=== PATIENT | female | born 1955 | race Caucasian/White ===

== ENCOUNTER 2021-08-28 18:14 | Emergency (ER) | payer SELFPAY ==
[2021-08-28 18:36] VITALS: BP 147/81; PULSE 53
[2021-08-28] MEDS ORDERED: Sodium Chloride 0.9% 1,000 ML IV ONE (19:13)
[2021-08-28] MEDS ORDERED: Ketorolac 30 MG/ML SDV IVPUSH STA (19:14)
[2021-08-28] MEDS ORDERED: Ondansetron 4 MG/2 ML SDV IVPUSH ONE ×2 (19:14→21:20)
--- NOTE | 2021-08-28 20:05 | EDM.PDOC ---
ED HPI GENERAL MEDICAL PROBLEM - General Chief Complaint: Headache Stated Complaint: VOMITING FEVER HEADACHE Time Seen by Provider: 08/28/21 18:48 Source of Information: Reports: Patient History Limitations: Reports: No Limitations - History of Present Illness INITIAL COMMENTS - FREE TEXT/NARRATIVE: Mrs. Jones is a very pleasant 65-year-old woman who now presents to the ED st ating that she started sneezing on 08/24/2021. She developed a wet- sounding cough and a sore throat on 08/25/2021. She developed a subjective fever with chills, along with a headache, on 08/26/2021, followed by a loss of taste and smell, with nausea and vomiting on , 08/27/2021. She denies associated dyspnea. No recent urinary symptoms. She states that she took some ibuprofen on , but subsequently vomited it up. She reports that because of her illness, she has not been able to take any of her usually prescribed medications since Tuesday. The patient states that her is not similarly ill. Here in the ED, the patient's initial BP was found to be mildly elevated at 147/81, with bradycardia 53 bpm. She is afebrile, saturating 97% on room air. She complains of being uncomfortable, but does not appear to be in acute distress. The patient denies having a recent ear pain, nasal or sinus congestion, dyspnea, chest pain, palpitations, constipation, diarrhea, abdominal pain, urinary symptoms, recent weight gain or weight loss, recent bloody bowel movements or black bowel movements, recent joint aches, or rashes. The patient's PCP is Dr. Agapito Whitten. Her Orthopedic Surgeon is Dr. Jerrod Kingston. She has not received a COVID vaccination. Headache Pain Score (Numeric/FACES): 8 - Related Data Allergies Allergy/AdvReac Type Severity Reaction Status Date / Time No Known Allergies Allergy Verified 08/28/21 18:36 Home Meds: Home Meds hydroCHLOROthiazide [Hydrochlorothiazide] 12.5 mg PO DAILY 12/02/14 [History] lisinopriL [Prinivil] 10 mg PO DAILY 12/02/14 [History] Cholecalciferol (Vitamin D3) [Vitamin D3] 1 tab PO DAILY 08/28/21 [History] Famotidine [Pepcid AC] 20 mg PO DAILY 08/28/21 [History] Mv,Calcium,Min/Iron/Folic/Vitk [Multi For Her Tablet] 1 tab PO DAILY 08/28/21 [History] Sucralfate 1 tab PO BID 08/28/21 [History] Zinc 1 tab PO DAILY 08/28/21 [History] Past Medical History HEENT History: Reports: Impaired Vision Cardiovascular History: Reports: Hypertension Musculoskeletal History: Reports: Osteoarthritis Endocrine/Metabolic History: Reports: Obesity/BMI 30+ - Past Surgical History HEENT Surgical History: Reports: Naso-Sinus Surgery (Rhinoplasty), Oral Surgery (dental extractions), Tonsillectomy Musculoskeletal Surgical History: Reports: Knee Replacement (bilateral) Social & Family History - Tobacco Use Tobacco Use Status *Q: Never Tobacco User Second Hand Smoke Exposure: No - Alcohol Use Alcohol Use History: No - Recreational Drug Use Recreational Drug Use: No - Living Situation & Occupation Living situation: Reports: , with Spouse Occupation: Employed ([employer]) ED ROS GENERAL - Review of Systems Review Of Systems: Comprehensive ROS is negative, except as noted in HPI. ED EXAM, GENERAL - Physical Exam Exam: See Below Exam Limited By: No Limitations General Appearance: Alert, WD/WN, Mild Distress (appears uncomfortable) Eye Exam: Bilateral Eye: EOMI, Normal Inspection Ears: Normal External Exam, Hearing Grossly Normal Nose: Normal Inspection Throat/Mouth: Normal Inspection, Normal Lips, Normal Voice, No Airway Compromise Head: Atraumatic, Normocephalic Neck: Normal Inspection, Full Range of Motion Respiratory/Chest: No Respiratory Distress, Lungs Clear, Normal Breath Sounds, No Accessory Muscle Use Cardiovascular: Normal Peripheral Pulses, Regular Rate, Rhythm, No Gallop, No JVD, No Murmur, No Rub Peripheral Pulses: 3+: Radial (L), Radial (R) GI/Abdominal: Normal Bowel Sounds, Soft, Non-Tender, No Organomegaly, No Distention, No Abnormal Bruit, No Mass Back Exam: Normal Inspection, Full Range of Motion, NT Extremities: Normal Inspection, Normal Range of Motion, Normal Capillary Refill Neurological: Alert, Oriented, Normal Cognition, No Motor/Sensory Deficits Psychiatric: Normal Affect Skin Exam: Warm, Dry, Intact, Normal Color, No Rash #1 Interpretation EKG Date: 08/28/21 Time: 19:22 Rhythm: Other (Sinus bradycardia) Rate (Beats/Min): 54 Sheridan: Normal P-Wave: Present (Short GA interval) QRS: Other (Poor R-wave progression) ST-T: Normal QT: Normal Comparison: NA - No Prior EKG Course - Vital Signs Last Recorded V/S: Last Vital Signs Temp 36.1 C 08/28/21 18:27 Pulse 53 L 08/28/21 18:27 Resp 16 08/28/21 18:27 BP 147/81 H 08/28/21 18:27 Pulse Ox 97 08/28/21 18:27 - Orders/Labs/Meds Orders: Active Orders 24 hr Category Date Time Status Chest 1V Frontal [CR] Stat Exams 08/28/21 19:10 Taken BLOOD CULTURE [MREF] Stat Lab 08/28/21 19:58 Received BLOOD CULTURE [MREF] Stat Lab 08/28/21 20:02 Received Blood Culture x2 Reflex Set [OM.PC] Stat Oth 08/28/21 19:13 Ordered Isolation [COMM] Routine Oth 08/28/21 19:13 Ordered Labs: Laboratory Tests 08/28/21 08/28/21 08/28/21 Range/Units 18:51 19:05 19:05 WBC 3.47 L (3.98-10.04) K/mm3 RBC 4.53 (3.98-5.22) M/mm3 Hgb 13.5 (11.2-15.7) gm/dl Hct 40.6 (34.1-44.9) % MCV 89.6 (79.4-94.8) fl MCH 29.8 (25.6-32.2) pg MCHC 33.3 (32.2-35.5) g/dl RDW Std Deviation 43.0 (36.4-46.3) fL Plt Count 217 D (182-369) K/mm3 MPV 9.4 (9.4-12.3) fl Neutrophils % (Manual) 55 (40-60) % Band Neutrophils % 1 (0-10) % Lymphocytes % (Manual) 31 (20-40) % Atypical Lymphs % 0 % Monocytes % (Manual) 13 H (2-10) % Eosinophils % (Manual) 0 L (0.7-5.8) % Basophils % (Manual) 0 L (0.1-1.2) Platelet Estimate Adequate RBC Morph Comment Normal D-Dimer, Quantitative (0.19-0.50) mg/L Sodium 137 (136-145) mEq/L Potassium 3.6 (3.5-5.1) mEq/L Chloride 101 (98-107) mEq/L Carbon Dioxide 23 (21-32) mEq/L Anion Gap 16.6 H (5-15) BUN 16 (7-18) mg/dL Creatinine 0.7 (0.55-1.02) mg/dL Est Cr Clr Drug Dosing TNP Estimated GFR (MDRD) > 60 (>60) mL/min BUN/Creatinine Ratio 22.9 H (14-18) Glucose 115 H (70-99) mg/dL Lactic Acid (0.4-2.0) mmol/L Calcium 8.8 (8.5-10.1) mg/dL Magnesium 1.7 L (1.8-2.4) mg/dL Total Bilirubin 0.8 (0.2-1.0) mg/dL AST 35 (15-37) U/L ALT 34 (14-59) U/L Alkaline Phosphatase 69 (46-116) U/L Troponin I < 0.017 (0.00-0.056) ng/mL C-Reactive Protein <0.2 (<1.0) mg/dL Total Protein 7.4 (6.4-8.2) g/dl Albumin 3.7 (3.4-5.0) g/dl Globulin 3.7 gm/dL Albumin/Globulin Ratio 1.0 (1-2) SARS-CoV-2 RNA (LUIS) Positive H (NEGATIVE) 08/28/21 08/28/21 Range/Units 19:05 19:05 WBC (3.98-10.04) K/mm3 RBC (3.98-5.22) M/mm3 Hgb (11.2-15.7) gm/dl Hct (34.1-44.9) % MCV (79.4-94.8) fl MCH (25.6-32.2) pg MCHC (32.2-35.5) g/dl RDW Std Deviation (36.4-46.3) fL Plt Count (182-369) K/mm3 MPV (9.4-12.3) fl Neutrophils % (Manual) (40-60) % Band Neutrophils % (0-10) % Lymphocytes % (Manual) (20-40) % Atypical Lymphs % % Monocytes % (Manual) (2-10) % Eosinophils % (Manual) (0.7-5.8) % Basophils % (Manual) (0.1-1.2) Platelet Estimate RBC Morph Comment D-Dimer, Quantitative 0.42 (0.19-0.50) mg/L Sodium (136-145) mEq/L Potassium (3.5-5.1) mEq/L Chloride (98-107) mEq/L Carbon Dioxide (21-32) mEq/L Anion Gap (5-15) BUN (7-18) mg/dL Creatinine (0.55-1.02) mg/dL Est Cr Clr Drug Dosing Estimated GFR (MDRD) (>60) mL/min BUN/Creatinine Ratio (14-18) Glucose (70-99) mg/dL Lactic Acid 1.5 (0.4-2.0) mmol/L Calcium (8.5-10.1) mg/dL Magnesium (1.8-2.4) mg/dL Total Bilirubin (0.2-1.0) mg/dL AST (15-37) U/L ALT (14-59) U/L Alkaline Phosphatase (46-116) U/L Troponin I (0.00-0.056) ng/mL C-Reactive Protein (<1.0) mg/dL Total Protein (6.4-8.2) g/dl Albumin (3.4-5.0) g/dl Globulin gm/dL Albumin/Globulin Ratio (1-2) SARS-CoV-2 RNA (LUIS) (NEGATIVE) Meds: Medications Discontinued Medications Generic Name Dose Route Start Last Admin Trade Name Freq PRN Reason Stop Dose Admin Acetaminophen 650 mg 08/28/21 21:20 08/28/21 21:29 Acetaminophen 325 Mg Tab PO 08/28/21 21:21 650 mg NOW ONE Administration Diphenhydramine HCl 50 mg 08/28/21 21:55 Diphenhydramine 50 Mg/Ml Sdv IVPUSH ONETIME PRN hypersensitivity reaction Epinephrine HCl 0.3 mg 08/28/21 21:55 Epinephrine 1 Mg/Ml Sdv IM ONETIME PRN hypersensitivity reaction Famotidine 20 mg 08/28/21 21:55 Famotidine 20 Mg/2 Ml Sdv IVPUSH ONETIME PRN hypersensitivity reaction Sodium Chloride 1,000 mls @ 999 mls/hr 08/28/21 19:13 08/28/21 19:23 Normal Saline IV 08/28/21 20:13 999 mls/hr ONETIME ONE Administration CASIRIVIMAB/IMDEVIMAB 10 ml/ 110 mls @ 220 mls/hr 08/28/21 21:55 08/28/21 22:50 Sodium Chloride IV 08/28/21 22:24 220 mls/hr ONETIME ONE Administration Ketorolac Tromethamine 30 mg 08/28/21 19:14 08/28/21 19:23 Ketorolac 30 Mg/Ml Sdv IVPUSH 08/28/21 19:15 30 mg ONETIME STA Administration Methylprednisolone Sodium Succinate 125 mg 08/28/21 21:55 Methylprednisolone Sodium Succinate 125 Mg/2 Ml Sdv IVPUSH ONETIME PRN hypersensitivity reaction Ondansetron HCl 4 mg 08/28/21 19:14 08/28/21 19:23 Ondansetron 4 Mg/2 Ml Sdv IVPUSH 08/28/21 19:15 4 mg ONETIME ONE Administration Ondansetron HCl 4 mg 08/28/21 21:20 08/28/21 21:31 Ondansetron 4 Mg/2 Ml Sdv IVPUSH 08/28/21 21:21 4 mg ONETIME ONE Administration Sodium Chloride 30 ml 08/28/21 22:00 Sodium Chloride 0.9% 10 Ml Syringe FLUSH ASDIRECTED YVETTE - Re-Assessments/Exams Free Text/Narrative Re-Assessment/Exam: 08/28/21 20:01 A swab for the SARS-CoV-2 virus was obtained at triage. I have ordered a work- up that includes numerous blood tests, 2 sets of blood cultures, the addition of an influenza A + B viruses, a portable chest x-ray, and an ECG. In the meantime, the patient will be treated with some IV Toradol for her headache, IV Zofran for her nausea, and IV fluid. 08/28/21 21:12 The patient's CBC is remarkable for leukopenia of 3.47, with the remainder of her CBC being unremarkable. Her CMP is remarkable for slight hyperglycemia of 115, with remainder of her CMP being unremarkable. Her magnesium level is slightly depressed at 1.7. Her lactic acid level is within normal limits at 1.5. Her CRP is undetectably low. Her troponin is undetectably low. Her D-dimer is within normal limits at 0.42. Her swab for the SARS-CoV-2 virus is positive. Her swab for influenza A + B viruses is still pending and her portable chest radiograph has not yet been obtained. 08/28/21 21:22 Portable chest radiograph appears to be grossly normal. A metallic necklace is seen. The cardiac silhouette is at the upper limits of normal. No pulmonary vascular congestion. No pleural effusions seen on this AP view. No focal infiltrate. No pneumothorax. Formal read per the Radiologist pending. 08/28/21 21:23 Test results discussed with the patient. As above, the patient has COVID-19, but is not hypoxemic. Based on her BMI and history of hypertension, she is a candidate for an infusion of the monoclonal antibody Regen-Cov. We discussed that at length, including that it is an emergency use authorization medication, intended to decrease the likelihood of patients diagnosed with COVID-19 from developing severe symptoms or , and that it does not treat her current symptoms. I explained that Regen-Cov is still under investigation, that it is not fully FDA approved, and that the potential benefits and risks of the medication are not fully known. The patient was notified that if she receives Regen-Cov, that it may decrease her immune response to a COVID vaccination, should she decide to get it after she recovers from her current illness. I explained that there is a possibility that she could have an allergic reaction either during or after the infusion, as well as brief pain, bleeding, bruising of the skin, soreness, swelling, and possible infection at the infusion site. Other side effects could occur. I discussed that there are other potential treatment options that are currently not FDA approved to treat COVID-19. The patient was notified that the infusion takes about half an hour, after which she would be expected to remain in the ED for another hour to observe for possible side effects. She was offered the "Patient and caregiver LINO Regen-Cov fact sheet" to read and review. All questions were answered. The patient expressed understanding, but would like to discuss the issue with her son on the phone before making a decision. 08/28/21 21:56 Notified by Alvaro LAWSON that the patient elected to proceed with the infusion of Regen-Cov. 08/28/21 23:57 It has been an hour since the patient's infusion of Regen-Cov has finished. I will discharge her home with an [facility] prescription for Zofran ODT. Diet as tolerated. She may take OTC ibuprofen as needed for discomfort, but I recommended that she not take any vviu-tze-jvxceaw cough or cold remedies, as they have been shown to be of no benefit, but will likely upset her stomach. We do not have any pulse oximeter is to give her, therefore I recommended that she have one of her adult kids go by the [facility] to see if they can give her one. She should check her oxygen saturation several times a day, and we would like her to return to the ED if her SpO2 drops down to 90% or lower, persistently. Departure - Departure Time of Disposition: 23:59 Disposition: Home, Self-Care 01 Condition: Good Clinical Impression: COVID-19 - Discharge Information *PRESCRIPTION DRUG MONITORING PROGRAM REVIEWED*: Not Applicable *COPY OF PRESCRIPTION DRUG MONITORING REPORT IN PATIENT MAKENZIE: Not Applicable Instructions: COVID-19 Frequently Asked Questions, 10 Things You Can Do to Manage Your COVID-19 Symptoms at Home - [facility] (06/12/2021), COVID-19: What to Do If You Are Sick- [facility] (02/11/2021) Referrals: Agapito Whitten MD [Physician] - Jerrod Kingston [Ordering Only Provider] - Forms: ED Department Discharge Additional Instructions: You were seen in the emergency room after developing sneezing, a cough, a sore throat, a possible fever with chills, loss of taste and smell, nausea, vomiting, and a headache. Work-up in the ER included numerous blood tests, 2 sets of blood cultures, a swab for the SARS-CoV-2 virus, a chest x-ray, and an ECG. Your swab for the SARS-CoV-2 virus returned positive, meaning that you have COVID-19. The remainder of your work-up was unremarkable. You were treated with an infusion of the monoclonal antibodies Regen-Cov (Regeneron). As discussed, Regen-Cov is not supposed to help with your current symptoms, but decreases your chance of developing severe symptoms or from COVID-19. A prescription for the antinausea medicine Zofran ODT has been provided to you via [employer]. You may dissolve 1 tablet of Zofran ODT on your tongue up to every 8 hours, as needed for nausea/vomiting. Stay adequately hydrated. Pedialyte, Gatorade, or Powerade are best. Eat a bland diet, such as rice, oatmeal, or bananas. Chicken noodle soup with saltine crackers is an excellent choice. You may take fhdx-bno-yncasgy ibuprofen as needed for discomfort. We recommend that you not take any iwes-qws-lzxegvu cough or cold remedies, as they have been shown to be of no benefit, and may upset your stomach. As discussed, it is imperative that both you and your strictly isolate until you test negative. On average, that takes 10 days. We recommend that you acquire a pulse oximeter and check your oxygen saturation several times a day. A free pulse oximeter may be available from the [facility]. If your oxygen saturation drops down to 90% or lower, persistently, please return to the ER for reevaluation. Sepsis Event Note (ED) - Focused Exam Vital Signs: Vital Signs Temp Pulse Resp BP Pulse Ox 08/28/21 18:27 36.1 C 53 L 16 147/81 H 97 - My Orders Last 24 Hours: My Active Orders 08/28/21 19:10 Chest 1V Frontal [CR] Stat 08/28/21 19:13 Blood Culture x2 Reflex Set [OM.PC] Stat Isolation [COMM] Routine 08/28/21 19:58 BLOOD CULTURE [MREF] Stat 08/28/21 20:02 BLOOD CULTURE [MREF] Stat - Assessment/Plan Last 24 Hours: My Active Orders 08/28/21 19:10 Chest 1V Frontal [CR] Stat 08/28/21 19:13 Blood Culture x2 Reflex Set [OM.PC] Stat Isolation [COMM] Routine 08/28/21 19:58 BLOOD CULTURE [MREF] Stat 08/28/21 20:02 BLOOD CULTURE [MREF] Stat
[2021-08-28] MEDS ORDERED: Acetaminophen 325 MG Tab PO ONE (21:20)
[2021-08-28] MEDS ORDERED: EPINEPHrine 1 MG/ML SDV IM PRN (21:55)
[2021-08-28] MEDS ORDERED: methylPREDNISolone Sodium Succinate 125 MG/2 ML SDV IVPUSH PRN (21:55)
[2021-08-28] MEDS ORDERED: Famotidine 20 MG/2 ML SDV IVPUSH PRN (21:55)
[2021-08-28] MEDS ORDERED: diphenhydrAMINE 50 MG/ML SDV IVPUSH PRN (21:55)
[2021-08-28] MEDS ORDERED: Sodium Chloride 0.9% 10 ML Syringe FLUSH SCH (22:00)
--- NOTE | 2021-08-29 07:09 | CR ---
Chest: Portable view of the chest was obtained. Comparison: No prior chest imaging is available. Heart size is normal. Tortuous thoracic aorta is seen. Lungs are clear with no acute parenchymal change. Bony structures show nothing acute. Impression: 1. Nothing acute is seen on portable chest x-ray. Diagnostic code #1
== END 2021-08-29 00:35 | disposition home or self-care (01) ==
LOC: JD.ED 18:14
DX: U07.1 COVID-19 (principal); I10 Essential (primary) hypertension; E66.9 Obesity, unspecified; Z68.30 Body mass index [BMI] 30.0-30.9, adult; Z79.899 Other long term (current) drug therapy
CPT/HCPCS: 36415; 71045; 80053; 83605; 83735; 84484; 85007; 85027; 85379; 86140; 87040; 87635; 93005; 96374; 96375; 96376; 99284; A9270; J1885; J2405; J7030; M0243; Q0243; U0002